=== PATIENT | female | born 1955 | race Caucasian/White ===

== ENCOUNTER 2021-09-02 06:36 | Emergency (ER) | payer MEDICARE ==
[2021-09-02 07:12] LABS: BASOPHIL 0.4 % (0-2); EOSINOPHIL 1.2 % (0-7); HCT 35.2 % (37.0-47.0); HGB 11.3 g/dl (12.5-16.0); LYMPHOCYTE 13.6 % (15-48); MCH 29.7 pg (25.0-31.0); MCHC 32.1 g/dL (32.0-36.0); MCV 92.6 fL (78.0-100.0); MONOCYTE 5.9 % (0-12); MPV 9.1 fL (6.0-9.5); NEUTROPHIL 76.5 % (41-80); NRBC 0; PLT 527 K/uL (150-400); WBC 16.3 K/uL (4.0-10.5)
[2021-09-02 07:41] LABS: CORONAVIRUS 2019 SARS-COV-2 NEGATIVE (NEGATIVE); INFLUENZA A NAA NEGATIVE (NEGATIVE)
[2021-09-02 07:48] LABS: ALBUMIN 2.9 g/dL (3.4-5.0); ALKALINE PHOSHATASE 144 U/L (46-116); ALT 95 U/L (14-59); AST 57 U/L (15-37); BILIRUBIN - TOTAL 0.4 mg/dL (0.2-1.0); BUN 9 mg/dL (7-18); BUN/CREAT RATIO (CALC) 12.3 RATIO; CHLORIDE 102 mmol/L (98-107); CO2 (BICARBONATE) 28 mmol/L (21-32); CREATININE 0.73 mg/dL (0.51-0.95); GLOBULIN (CALCULATION) 4.3 g/dL; GLUCOSE 101 mg/dL (74-106); POTASSIUM 3.8 mmol/L (3.5-5.1); TOTAL PROTEIN 7.2 g/dL (6.4-8.2)
[2021-09-02 07:54] LABS: C-REACTIVE PROTEIN < 0.20 mg/dL (<=0.90)
[2021-09-02 08:12] LABS: BILIRUBIN NEGATIVE (NEGATIVE); BLOOD TRACE-INTACT Ery/uL (NEGATIVE); CLARITY HAZY (CLEAR); COLOR YELLOW (YELLOW); GLUCOSE (U) NORMAL (NORMAL); LEUKOCYTES TRACE Leu/uL (NEGATIVE); NITRITE NEGATIVE (NEGATIVE); PROTEIN NEGATIVE (NEGATIVE); SPECIFIC GRAVITY 1.015 (1.001-1.030); UROBILINOGEN 0.2 mg/dL (0.2-1.0)
[2021-09-02 08:21] LABS: BACTERIA 1+; URINARY WBC 20-50
[2021-09-02 08:22] LABS: TRANSITIONAL EPITHELIAL CELLS RARE
[2021-09-02] MEDS ORDERED: CEFPODOXIME PR200 MG PO (08:30)
[2021-09-02] MEDS ORDERED: AZITHROMYCIN250 MG PO (08:30)
[2021-09-02] MEDS ORDERED: TESSALON PERLE100 M1 PO (08:30)
[2021-09-02] MEDS ORDERED: AUGMENTIN XR 11 EACH PO (08:33)
== END 2021-09-02 09:11 | disposition home or self-care (01) ==
LOC: FER 06:36
PROVIDERS: Emergency Medicine; Internal Medicine
DX: J18.9 Pneumonia, unspecified organism (principal); N39.0 Urinary tract infection, site not specified; Z88.2 Allergy status to sulfonamides; Z20.822 Contact with and (suspected) exposure to COVID-19
CPT/HCPCS: 36415; 71045; 80053; 81001; 82728; 84145; 84484; 85025; 85379; 86140; 87076; 87088; 87186; 93005; J0696; J7030; U0002